=== PATIENT | male | born 1960 | race Caucasian/White ===

== ENCOUNTER 2017-10-21 06:52 | Emergency (ER) | payer OTHER ==
[2017-10-21 06:59] VITALS: BP 163/89
[2017-10-21] MEDS ORDERED: TETANUS/DIPHTHERIA/PERTUSSIS 0.5 ML SYRINGE IM ONE (07:05)
[2017-10-21] MEDS ORDERED: AMOX/CLAV 875 MG/125 MG TABLET PO STA (07:29)
--- NOTE | 2017-10-21 08:14 | ED Physician Documentation ---
History of Present Illness - Stated complaint Stated Complaint: DOG BITE/R ELBOW LAC - Chief complaint Chief Complaint: Laceration - Additonal information Additional information: 57 male bit by another persons per dog 2 days ago on R elbow dog healthy and immunized Review of Systems Skin: reports: Bite / sting Immunocompromised: denies: Immunocompromised PD PAST MEDICAL HISTORY - Past Medical History Cardiovascular: Hypertension : 7 - Past Surgical History Past Surgical History: Yes - Present Medications Home Medications: Ambulatory Orders Medication Instructions Recorded Confirmed Doxazosin [Cardura] 8 mg PO QPM 10/03/12 11/29/13 Hydrocodone/Acetaminophen 1 - 2 tab PO Q4-6H PRN #15 tablet 11/29/13 [Hydrocodon-Acetaminophen 5-325] Amox/Clav 875/125 [Augmentin] 1 each PO Q12H #10 tablet 10/21/17 - Allergies Allergies/Adverse Reactions: Allergies Allergy/AdvReac Type Severity Reaction Status Date / Time No Known Drug Allergies Allergy Verified 10/03/12 10:12 - Social History Does the pt smoke?: No Smoking Status: Former smoker Does the pt drink ETOH?: No Does the pt have substance abuse?: No - Immunizations Immunizations are current?: No Immunizations: TDAP >10years/unknown PD ED PE NORMAL - Vitals Vital signs reviewed: Yes - Cardiac Cardiac: RRR - Respiratory Respiratory: No respiratory distress - Extremities Extremities: Other (several abrasions and punctures to R elbow, no surrounding erythema or swelling or streaking) - Neuro Neuro: No motor deficit, No sensory deficit Results - Vitals Vitals: Vital Signs - 24 hr 10/21/17 06:56 Temperature 35.8 C L Heart Rate 99 Respiratory 16 Rate Blood Pressure 163/89 H O2 Saturation 99 Oxygen O2 Source Room air Departure - Departure Disposition: 01 Home, Self Care Clinical Impression: Dog bite of right elbow Qualifiers: Encounter type: initial encounter Qualified Code(s): S51.051A - Open bite, right elbow, initial encounter; W54.0XXA - Bitten by dog, initial encounter; W54.0XXA - Bitten by dog, initial encounter Condition: Good Instructions: ED Bite Dog Follow-Up: Gerardo Cline MD [Primary Care Provider] - Prescriptions: Amox/Clav 875/125 [Augmentin] 1 each PO Q12H #10 tablet Comments: Please wash the wound carefully and apply antibiotic ointment twice a day Watch carefully for any developing infection (redness swelling drainage) and return to the ER if worse
[2017-10-21] MEDS ORDERED: BACITRACIN OINT TOP ONE (08:41)
== END 2017-10-21 08:40 | disposition home or self-care (01) ==
LOC: ED 06:52
DX: S51.051A Open bite, right elbow, initial encounter (principal); W54.0XXA Bitten by dog, initial encounter; Z23 Encounter for immunization; I10 Essential (primary) hypertension; Z87.891 Personal history of nicotine dependence
CPT/HCPCS: 90471; 90715; 99283; A9270

== ENCOUNTER 2018-01-11 21:45 | Emergency (ER) | payer OTHER ==
[2018-01-11 21:52] VITALS: BP 158/100
--- NOTE | 2018-01-12 00:04 | Ultrasound Report ---
Procedure Date: 01/11/2018 Accession Number: [id number] / [id number] Procedure: US - Duplex Ext Veins Right CPT Code: FULL RESULT: EXAM: RIGHT LOWER EXTREMITY VENOUS ULTRASOUND EXAM DATE: 01/11/2018 11:09 PM. CLINICAL HISTORY: Unilateral right leg swelling. COMPARISON: None. TECHNIQUE: Real-time sonographic vascular imaging was performed by the application support manager through the lower extremity utilizing both color-flow and Doppler spectral analysis. Multiple business center representative static images were saved for review. FINDINGS: Common Femoral Vein (CFV): Normal. CFV-GSV Junction: Normal. Profunda Femoral Vein (PFV): Normal. Femoral Vein (FV) Prox: Normal. Femoral Vein (FV) Mid: Normal. Femoral Vein (FV) Dist: Suboptimally seen. No thrombus identified. Popliteal Vein: Suboptimally seen. No thrombus identified. Posterior Tibial Veins: Not well seen. Peroneal Veins: Not well seen. Contralateral Side CFV: Normal. Other: Fluid anteriorly at the knee, presumably joint effusion. Popliteal fossa cyst measuring 3.0 x 1.1 x 1.9 cm. Complex nonvascular intramuscular collection in the posterior calf which is too large to measure. IMPRESSION: 1. No deep venous thrombosis seen. Calf veins are not well seen. 2. Probable large knee joint effusion. 3. Popliteal fossa cyst measuring 3.0 x 1.1 x 1.9 cm. 4. Probable large hematoma in the posterior calf musculature. RADIA
--- NOTE | 2018-01-12 00:12 | ED Physician Documentation ---
PD HPI LOWER EXT INJURY - Stated complaint Stated Complaint: LEG PX - Chief complaint Chief Complaint: Ext Problem - History obtained from History obtained from: Patient - History of Present Illness PD HPI LOW EXT INJURY LOCATION: Right, Knee, Lower leg Where injury occurred: Home Timing - onset: How many weeks ago (1) Timing - details: Gradual onset, Still present Associated symptoms: Swelling, Discolored Similar symptoms before: Has not had sx before Recently seen: Not recently seen - Additional information Additional information: Patient is a 57 year old male who is presenting to the emergency department for right leg tenderness and swelling. Patient denies any trauma but states that his knee was swollen and then spreading seemed to spread to his leg. Review of Systems Ten Systems: 10 systems reviewed and negative Respiratory: denies: Dyspnea Musculoskeletal: reports: Extremity pain, Extremity swelling PD PAST MEDICAL HISTORY - Past Medical History Past Medical History: Yes Cardiovascular: Hypertension : 7 - Past Surgical History Past Surgical History: Yes - Present Medications Home Medications: Ambulatory Orders Medication Instructions Recorded Confirmed Doxazosin [Cardura] 8 mg PO QPM 10/03/12 01/11/18 - Allergies Allergies/Adverse Reactions: Allergies Allergy/AdvReac Type Severity Reaction Status Date / Time No Known Drug Allergies Allergy Verified 10/03/12 10:12 - Social History Does the pt smoke?: No Smoking Status: Never smoker Does the pt drink ETOH?: No Does the pt have substance abuse?: No - Immunizations Immunizations are current?: Yes Immunizations: TDAP current <10years PD ED PE NORMAL - Vitals Vital signs reviewed: Yes - General General: Alert and oriented X 3 - HEENT HEENT: Atraumatic - Cardiac Cardiac: RRR - Respiratory Respiratory: No respiratory distress - Neuro Neuro: Alert and oriented X 3 Eye Opening: Spontaneous PD ED PE EXPANDED - Extremities Extremities: Right leg (tenderness and swelling of right lower extremity), Pedal edema R, Pedal Pulses Present, Sensory intact, Vascular intact. No: Cold foot, Pale foot Results - Vitals Vitals: Vital Signs - 24 hr 01/11/18 21:49 Temperature 36.4 C L Heart Rate 99 Respiratory 18 Rate Blood Pressure 158/100 H O2 Saturation 98 Oxygen O2 Source Room air - Rads (name of study) vas study Radiology: Final report received (hematoma of right lower extremity, no dvt present) PD MEDICAL DECISION MAKING - ED course Complexity details: reviewed old records, reviewed results, re-evaluated patient , considered differential, d/w patient ED course: Patient was seen and examined at bedside. vasc study was ordered. patient was found to have hematoma in his right lower extremity but no dvt. Patient was made aware of the findings. Patient required no further work up and was stable for discharge with outpatient follow up. - Sepsis Event Vital Signs: Vital Signs - 24 hr 01/11/18 21:49 Temperature 36.4 C L Heart Rate 99 Respiratory 18 Rate Blood Pressure 158/100 H O2 Saturation 98 Oxygen O2 Source Room air Departure - Departure Disposition: 01 Home, Self Care Clinical Impression: Hematoma of leg Condition: Good Instructions: ED Hematoma Follow-Up: Gerardo Cline MD [Primary Care Provider] - Within 3 Days Comments: Your diagnostics today showed a large hematoma (clot) in your leg but not in your blood vessels. It is important to keep your leg elevated and you can apply warm compresses to the area to help with clot dissipate. You can also wear compression stockings during the day to help with swelling. You should follow up with your doctor if your symptoms persist. You may return to the emergency department at any time for new, worsening or uncontrollable symptoms.
== END 2018-01-12 00:15 | disposition home or self-care (01) ==
LOC: ED 21:45
DX: S80.11XA Contusion of right lower leg, initial encounter (principal); X58.XXXA Exposure to other specified factors, initial encounter; I10 Essential (primary) hypertension
CPT/HCPCS: 99282; 99283

== ENCOUNTER 2019-04-08 10:00 | Outpatient (CLI) | payer OTHER | END 2019-04-08 23:59 | disposition home or self-care (01) | LOC: LAB.N 10:00 | PROVIDERS: ATTEND Nurse Practitioner Gerontology | DX: R31.9 Hematuria, unspecified (principal) | CPT/HCPCS: 36415; 84153 ==

== ENCOUNTER 2019-09-28 08:00 | Outpatient (CLI) | payer OTHER ==
[2019-09-28 13:39] LABS: BILIRUBIN,URINE NEGATIVE (NEGATIVE); GLUCOSE, URINE (UA) NEGATIVE (NEGATIVE); KETONES,URINE (UA) NEGATIVE (NEGATIVE); LEUKOCYTE ESTERASE, URINE NEGATIVE (NEGATIVE); NITRITE,URINE NEGATIVE (NEGATIVE); OCCULT BLOOD,URINE NEGATIVE (NEGATIVE); PH,URINE 6.5 PH (5.0-7.5); PROTEIN,URINE NEGATIVE (NEGATIVE); UROBILINOGEN,URINE 0.2 (NORMAL) E.U./dL (NORMAL)
[2019-09-28 13:42] LABS: CLARITY,URINE CLEAR (CLEAR)
== END 2019-09-28 23:59 | disposition home or self-care (01) ==
LOC: LAB.WCP 08:00
PROVIDERS: ATTEND Family Medicine
DX: R31.9 Hematuria, unspecified (principal)
CPT/HCPCS: 36415; 81001; 81003; 84153; 87086

== ENCOUNTER 2019-10-12 17:44 | Outpatient (CLI) | payer OTHER | END 2019-10-12 23:59 | disposition home or self-care (01) | LOC: LAB.R 17:44 | PROVIDERS: ATTEND Family Medicine | DX: Z12.11 Encounter for screening for malignant neoplasm of colon (principal) | CPT/HCPCS: 82274 ==

== ENCOUNTER 2019-11-17 08:55 | Outpatient (CLI) | payer OTHER ==
--- NOTE | 2019-11-17 16:17 | XRAY Report ---
Reason: LEFT ANKLE PAIN Procedure Date: 11/17/2019 Accession Number: [id number] / [id number] Procedure: WCP - Ankle 2 View LT CPT Code: Final Report FULL RESULT: PROCEDURE: Ankle 2 View LT INDICATIONS: LEFT ANKLE PAIN TECHNIQUE: 2 views of the ankle were acquired. COMPARISON: None FINDINGS: Bones: No fractures or dislocations. Ankle mortise is normally aligned. No suspicious bony lesions. Calcaneal spur is present. Soft tissues: No tibiotalar joint effusion. Achilles tendon appears normal. IMPRESSION: No visualized acute fracture or dislocation. However, occult injury cannot be excluded. Recommend short interval imaging follow-up in 7-10 days as clinically indicated for additional evaluation. Reviewed by: Veronica Salter MD on 11/17/2019 4:16 PM PDT Approved by: Veronica Salter MD on 11/17/2019 4:16 PM PDT Station ID: [id number]
== END 2019-11-17 23:59 | disposition home or self-care (01) ==
LOC: DI.WCP 08:55
PROVIDERS: ATTEND Family Medicine
DX: M77.32 Calcaneal spur, left foot (principal)

== ENCOUNTER 2021-01-07 16:42 | Outpatient (CLI) | payer BC ==
[2021-01-07 20:48] LABS: BASOPHILS # (AUTO) 0.1 10^3/uL (0.0-0.1); BASOPHILS % (AUTO) 0.9 %; EOSINOPHILS # (AUTO) 0.3 10^3/uL (0.0-0.7); EOSINOPHILS % (AUTO) 4.3 %; HCT - HEMATOCRIT 42.6 % (42.0-52.0); HGB - HEMOGLOBIN 14.5 g/dL (14.0-18.0); LYMPHOCYTES # (AUTO) 2.1 10^3/uL (1.5-3.5); LYMPHOCYTES % (AUTO) 27.7 %; MEAN CORPUSCULAR HEMOGLOBIN 30.4 pg (27.0-31.0); MEAN CORPUSCULAR VOLUME 89.3 fL (80.0-94.0); MEAN PLATELET VOLUME 9.9 fL (7.4-11.4); MONOCYTES # (AUTO) 0.7 10^3/uL (0.0-1.0); MONOCYTES % (AUTO) 8.9 %; NEUTROPHILS # (AUTO) 4.4 10^3/uL (1.5-6.6); NEUTROPHILS % (AUTO) 57.9 %; PLT - PLATELET COUNT 286 10^3/uL (130-450); RED BLOOD COUNT 4.77 10^6/uL (4.70-6.10); RED CELL DISTRIBUTION WIDTH 12.5 % (12.0-15.0); WHITE BLOOD COUNT 7.6 x10^3/uL (4.8-10.8)
[2021-01-07 21:01] LABS: ALBUMIN 4.8 g/dL (3.2-5.5); ALBUMIN/GLOBULIN RATIO 1.8 (1.0-2.2); ALKALINE PHOSPHATASE 73 IU/L (42-121); ALT ALANINE AMINOTRANSFERASE 17 IU/L (10-60); AST ASPARTATE AMINOTRANSFERASE 17 IU/L (10-42); BILIRUBIN,TOTAL 0.4 mg/dL (0.2-1.0); BUN - BLOOD UREA NITROGEN 20 mg/dL (6-20); CALCIUM 9.1 mg/dL (8.5-10.3); CARBON DIOXIDE - CO2 27 mmol/L (21-32); CHLORIDE 100 mmol/L (101-111); CHOL/HDL RATIO 5.6 (<5.0); CHOLESTEROL 239 mg/dL; CREATININE 0.7 mg/dL (0.6-1.2); GFR - MDRD 115 (>89); GLUCOSE 92 mg/dL (70-100); HDL CHOLESTEROL 43 mg/dL; LDL CHOLESTEROL,CALCULATED 131 mg/dL; POTASSIUM 3.4 mmol/L (3.5-5.0); SODIUM 138 mmol/L (135-145); TOTAL PROTEIN 7.4 g/dL (6.7-8.2); TRIGLYCERIDES 324 mg/dL; VLDL CHOLESTEROL 65 mg/dL
== END 2021-01-07 16:43 | disposition home or self-care (01) ==
LOC: LAB.N 16:42
PROVIDERS: ATTEND Family Medicine
DX: I10 Essential (primary) hypertension (principal); N40.1 Benign prostatic hyperplasia with lower urinary tract symptoms; C61 Malignant neoplasm of prostate; N13.8 Other obstructive and reflux uropathy
CPT/HCPCS: 36415; 80053; 80061; 83721; 84153; 85025

== ENCOUNTER 2021-01-13 08:00 | Outpatient (CLI) | payer BC ==
[2021-01-14 19:01] LABS: FECAL OCCULT BLOOD (FIT) POSITIVE (NEGATIVE)
== END 2021-01-13 23:59 | disposition home or self-care (01) ==
LOC: LAB.R 08:00
PROVIDERS: ATTEND Family Medicine
DX: Z12.11 Encounter for screening for malignant neoplasm of colon (principal)
CPT/HCPCS: 82274

== ENCOUNTER 2021-02-12 10:15 | Outpatient (CLI) | payer BC ==
--- NOTE | 2021-02-12 13:35 | XRAY Report ---
PROCEDURE: Knee 4 View RT INDICATIONS: ARTHRITIS, R KNEE TECHNIQUE: 4 views of the right knee(s) were acquired. COMPARISON: None. FINDINGS: Bones: No fractures or dislocations. No suspicious bony lesions. There is severe recommend the kne e joint degeneration, most pronounced in the medial femorotibial compartment and patellofemoral osmany rtment. Note is made of severe left knee joint degeneration. Soft tissues: Moderate right joint effusion. No suspicious soft tissue calcifications. IMPRESSION: 1. Severe osteoarthritic changes. 2. Moderate knee joint effusion. Reviewed by: Poncho Calvin MD on 02/12/2021 1:34 PM PDT Approved by: Poncho Calvin MD on 02/12/2021 1:34 PM PDT Station ID: [id number]
== END 2021-02-12 23:59 | disposition home or self-care (01) ==
LOC: DI.N 10:15
PROVIDERS: ATTEND Physician Assistant
DX: M17.11 Unilateral primary osteoarthritis, right knee (principal); M25.461 Effusion, right knee

== ENCOUNTER 2021-04-05 08:17 | Day surgery (SDC) | payer BC ==
[2021-04-05] MEDS ORDERED: LACTATED RINGERS 1,000 ML IV ONE (08:57)
--- NOTE | 2021-04-05 09:58 | ANESTHESIA ---
Pre-Anesthesia VS, & Labs - Diagnosis screening - Procedure colonoscopy Vital Signs: Temp Pulse Resp BP Pulse Ox 37.2 C 22 L 102 H 108/91 H 98 04/05/21 08:37 04/05/21 08:37 04/05/21 08:37 04/05/21 08:37 04/05/21 08:37 Height: 5 ft 8 in Weight (kg): 78 kg Body Mass Index: 26.1 BMI Classification: Overweight - NPO >8 hours Home Medications and Allergies Home Medications: Ambulatory Orders amLODIPine [Norvasc] 5 mg PO DAILY 04/05/21 amLODIPine [Norvasc] 5 mg PO DAILY 04/05/21 Allergies/Adverse Reactions: Allergies Allergy/AdvReac Type Severity Reaction Status Date / Time No Known Drug Allergies Allergy Verified 10/03/12 10:12 Anes History & Medical History - Anesthetic History Anesthesia Complications: reports: No previous complications Family history of Anesthesia Complications: Denies Family history of Malignant Hyperthermia: Denies - Medical History Cardiovascular: reports: Hypertension Urinary: Smoking Status: Never smoker Exam General: Alert, Oriented x3, Cooperative Mouth Openin Fingerbreadth Neck Mobility: Normal Mallampati classification: III Thyromental Distance: 4-6 cm Respiratory: Lungs clear Cardiovascular: Regular rate Plan Anesthesia Type: Total IV Consent for Procedure(s) Verified and Reviewed: Yes Code Status: Attempt Resuscitation ASA classification: 2-Mild systemic disease Is this case an emergency?: No
[2021-04-05] MEDS ORDERED: PROPOFOL 500 MG/50 ML 500 MG/50 ML VIAL ONE (10:23)
[2021-04-05] MEDS ORDERED: MIDAZOLAM 2 MG/2 ML VIAL ONE (10:26)
--- NOTE | 2021-04-05 10:58 | HISTORY & PHYSICAL EXAMINATION ---
Chief Complaint - Chief Complaint Chief Complaint: Here for colon cancer screening History of Present Illness - History Obtained From Records Reviewed: yes History obtained from: pt Exam Limitations: none - History of Present Illness HPI Comment/Other: Here for colon cancer screening. History - Past Medical History Cardiovascular: reports: Hypertension : MRSA Hx?: No Meds/Allgy - Home Medications Home Medications: Ambulatory Orders Medication Instructions Recorded Confirmed amLODIPine [Norvasc] 5 mg PO DAILY 04/05/21 04/05/21 - Allergies Allergies/Adverse Reactions: Allergies Allergy/AdvReac Type Severity Reaction Status Date / Time No Known Drug Allergies Allergy Verified 10/03/12 10:12 Review of Systems - Other Findings Other Findings: 10 pt ros as above otherwise unremarkable Exam - Vital Signs Reviewed Vital Signs: Yes Vital Signs: Vital Signs x48h Temp Pulse Resp BP Pulse Ox 04/05/21 08:37 37.2 C 22 L 102 H 108/91 H 98 - Physical Exam General Appearance: positive: No acute distress, Alert Eyes Bilateral: positive: PERRL, EOMI ENT: positive: No signs of dehydration Neck: positive: No JVD Respiratory: positive: No respiratory distress, Breath sounds nml Cardiovascular: positive: Regular rate & rhythm Abdomen: positive: Non-tender, No distention Neurologic/Psychiatric: positive: Oriented x3 Conclusion/Plan - Problem List (1) Colon cancer screening Conclusion/Plan: plan colonoscopy. parq held and consent obtained
[2021-04-05] MEDS ORDERED: LACTATED RINGERS 100 ML IV ONE (11:57)
[2021-04-05 12:20] VITALS: BP 132/74
--- NOTE | 2021-04-05 15:06 | ANESTHESIA POST OP EVALUATION ---
Anesthesia Post Eval - Post Anesthesia Eval Vitals: Last Vital Signs Temp 36.6 C 04/05/21 12:15 Pulse 84 04/05/21 12:15 Resp 16 04/05/21 12:15 BP 132/74 H 04/05/21 12:15 Pulse Ox 98 04/05/21 12:15 CV Function Including HR & BP: Stable Pain Control: Satisfactory Nausea & Vomiting: Negative Mental Status: Baseline Respiratory Status: Airway Patent Hydration Status: Satisfactory Anesthesia Complications: None
== END 2021-04-05 08:18 | disposition home or self-care (01) ==
LOC: SDS 08:17
PROVIDERS: ATTEND Surgery
PROC: 0DBN8ZZ Excision of Sigmoid Colon, Via Natural or Artificial Opening Endoscopic (ICD-10-PCS; principal; 2021-04-05 10:30)
DX: R19.5 Other fecal abnormalities (principal); D12.5 Benign neoplasm of sigmoid colon; Z85.46 Personal history of malignant neoplasm of prostate; Z92.3 Personal history of irradiation; F17.210 Nicotine dependence, cigarettes, uncomplicated
CPT/HCPCS: 45385; J7120

== ENCOUNTER 2022-01-23 10:52 | Outpatient (CLI) | payer BC ==
--- NOTE | 2022-01-23 16:24 | XRAY Report ---
PROCEDURE: Knee 4 View BILAT INDICATIONS: BILATERAL PRIMARY OSTEOARTHRITIS OF KNEE TECHNIQUE: Four views of the right knee. COMPARISON: None. FINDINGS: Moderate tricompartmental osteoarthritis in both knees, slightly more pronounced on the left. There i s tricompartmental joint space narrowing with osteophytosis. Additional subchondral sclerosis and cys tic change noted in the medial femorotibial compartments, right greater than left. No knee joint effu marta identified. No suspicious lytic or blastic lesion. No periarticular erosion. IMPRESSION: Moderate bilateral knee osteoarthritis, slightly more pronounced on the right. Reviewed by: Kian Malone MD on 01/23/2022 4:22 PM PDT Approved by: Kian Malone MD on 01/23/2022 4:22 PM PDT Station ID: [id number]
== END 2022-01-23 10:53 | disposition home or self-care (01) ==
LOC: DI 10:52
PROVIDERS: ATTEND Orthopaedic Surgery
DX: M17.0 Bilateral primary osteoarthritis of knee (principal)

== ENCOUNTER 2022-02-11 12:27 | Outpatient (CLI) | payer BC | END 2022-02-11 12:28 | disposition home or self-care (01) | LOC: LAB.N 12:27 | PROVIDERS: ATTEND Orthopaedic Surgery | DX: Z01.812 Encounter for preprocedural laboratory examination (principal); M17.0 Bilateral primary osteoarthritis of knee; Z20.822 Contact with and (suspected) exposure to COVID-19 ==

== ENCOUNTER 2022-02-12 06:22 | Day surgery (SDC) | payer BC ==
[2022-02-12] MEDS ORDERED: LACTATED RINGERS 1,000 ML IV ONE ×2 (06:25→10:54)
[2022-02-12] MEDS ORDERED: CELECOXIB 100 MG CAPSULE PO ONE (06:29)
[2022-02-12] MEDS ORDERED: DEXAMETHASONE 10 MG/ML VIAL ONE (06:29)
[2022-02-12] MEDS ORDERED: ACETAMINOPHEN 500 MG TABLET PO ONE (06:29)
[2022-02-12] MEDS ORDERED: CEFAZOLIN 2G/50ML 0.9% NS 2 GM/50 ML BAG IV ONE (06:30)
--- NOTE | 2022-02-12 07:17 | ANESTHESIA ---
Pre-Anesthesia VS, & Labs - Diagnosis R knee OA - Procedure R TKA Vital Signs: Temp Pulse Resp BP Pulse Ox O2 Flow Rate 36.9 C 93 16 150/84 H 98 0 02/12/22 06:37 02/12/22 06:37 02/12/22 06:37 02/12/22 06:37 02/12/22 06:37 02/12/22 06:37 Height: 5 ft 8 in Weight (kg): 81.4 kg Body Mass Index: 27.3 BMI Classification: Overweight - NPO >8 hours - Lab Results Current Lab Results: Laboratory Tests 02/12/22 06:49: POC Whole Bld Glucose 97 Home Medications and Allergies Home Medications: Ambulatory Orders Tadalafil [Cialis] 20 mg PO PRN PRN 02/04/22 Tamsulosin [Flomax] 0.4 mg PO QPM 02/04/22 amLODIPine [Norvasc] 10 mg PO DAILY 04/05/21 Tadalafil [Cialis] 20 mg PO PRN PRN 02/04/22 Tamsulosin [Flomax] 0.4 mg PO QPM 02/04/22 Allergies/Adverse Reactions: Allergies Allergy/AdvReac Type Severity Reaction Status Date / Time No Known Drug Allergies Allergy Verified 10/03/12 10:12 Anes History & Medical History - Anesthetic History Anesthesia Complications: reports: No previous complications Family history of Anesthesia Complications: Denies Family history of Malignant Hyperthermia: Denies - Medical History Cardiovascular: reports: Hypertension Pulmonary: reports: None Gastrointestinal: reports: None Musculoskeletal: reports: Osteoarthritis Endocrine/Autoimmune: reports: None Skin: reports: None Smoking Status: Never smoker - Surgical History General: reports: Colonoscopy Exam General: Alert, Oriented x3, Cooperative Dental: WNL Neck Mobility: Normal Mallampati classification: II Thyromental Distance: 4-6 cm Respiratory: Lungs clear, Normal breath sounds, No respiratory distress Cardiovascular: Regular rate Neurological: Normal speech Mental/Cognitive Status: Alert/Oriented X3, Normal for patient Cognitive Status: Within normal limits Plan Anesthesia Type: Spinal Consent for Procedure(s) Verified and Reviewed: Yes Code Status: Attempt Resuscitation ASA classification: 2-Mild systemic disease Is this case an emergency?: No
[2022-02-12] MEDS ORDERED: HYDROmorphone 0.5 MG/0.5 ML SYRINGE IVP PRN (07:18)
[2022-02-12] MEDS ORDERED: fentaNYL 100 MCG/2 ML VIAL IVP PRN ×2 (07:18→10:48)
[2022-02-12] MEDS ORDERED: ePHEDrine 50 MG/ML VIAL IVP PRN (07:18)
[2022-02-12] MEDS ORDERED: METOCLOPRAMIDE 10 MG/2 ML VIAL IVP PRN (07:18)
[2022-02-12] MEDS ORDERED: ATROPINE ABBOJECT 1 MG/10 ML SYRINGE IVP PRN (07:18)
[2022-02-12] MEDS ORDERED: ONDANSETRON 4 MG/2 ML VIAL IVP PRN ×2 (07:18→10:48)
[2022-02-12] MEDS ORDERED: MORPHINE 2 MG/ML CARPUJECT IVP PRN (07:18)
[2022-02-12] MEDS ORDERED: NALOXONE 0.4 MG/ML VIAL IVP PRN (07:18)
[2022-02-12] MEDS ORDERED: BUPIVACAINE 0.25% PF 10 ML VIAL ONE (07:25)
[2022-02-12] MEDS ORDERED: VANCOMYCIN 1 GM VIAL ONE (07:25)
[2022-02-12] MEDS ORDERED: PROPOFOL 200 MG/20 ML VIAL IVP ONE (07:27)
[2022-02-12] MEDS ORDERED: KETOROLAC 30 MG/ML VIAL ONE (07:27)
[2022-02-12] MEDS ORDERED: TRANEXAMIC ACID 1,000 MG/10 ML VIAL ONE (07:28)
[2022-02-12] MEDS ORDERED: MIDAZOLAM 2 MG/2 ML VIAL ONE (07:28)
[2022-02-12] MEDS ORDERED: BUPIVACAINE 0.5% PF 10 ML VIAL ONE (07:30)
[2022-02-12] MEDS ORDERED: LACTATED RINGERS 1,000 ML IV SCH (08:00)
[2022-02-12] MEDS ORDERED: BUPIVACAINE 0.25% PF 10 ML VIAL SUBQ ONE (08:42)
[2022-02-12] MEDS ORDERED: VANCOMYCIN 1 GM VIAL MC ONE (08:43)
[2022-02-12] MEDS ORDERED: HYDROGEN PEROXIDE 3% 473 ML BOTTLE TOP ONE (08:45)
[2022-02-12] MEDS ORDERED: KETAMINE 500 MG/10 ML VIAL ONE (09:29)
[2022-02-12] MEDS ORDERED: PROPOFOL 500 MG/50 ML 500 MG/50 ML VIAL ONE ×2 (09:38→13:10)
[2022-02-12] MEDS ORDERED: fentaNYL 100 MCG/2 ML VIAL ONE (09:40)
--- NOTE | 2022-02-12 09:56 | XRAY Report ---
PROCEDURE: Knee 2 View RT INDICATIONS: BROKEN SAW BLADE DURING SURGERY TECHNIQUE: Single AP view of the knee. COMPARISON: Knee radiographs 01/23/2022. FINDINGS: Intraoperative radiograph demonstrates postsurgical changes at the femoral and tibial articular surfa carmen. Overlying postoperative changes are seen in the soft tissues. No metallic foreign body is seen. IMPRESSION: No metallic foreign body. Reviewed by: Tim Portillo MD on 02/12/2022 9:55 AM PDT Approved by: Tim Portillo MD on 02/12/2022 9:55 AM PDT Station ID: [id number]
[2022-02-12] MEDS ORDERED: ePHEDrine 50 MG/ML VIAL IVP ONE ×2 (10:06→12:55)
[2022-02-12] MEDS ORDERED: ROPIVACAINE 0.5% PF 30 ML VIAL ONE (10:22)
--- NOTE | 2022-02-12 10:25 | OPERATIVE REPORT ---
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 He has had chronic pain refractory to nonoperative treatment that interferes with most weightbearing activities. His exam shows a relatively fixed varus deformity right knee, joint line tenderness, good stability and strength. His routine radiographs show [id number] contact medial compartment, varus angulation, osteophytes about the tibiofemoral and patellofemoral joint. He has had preoperative medical evaluation, attended joint camp, agreement to the procedure of a right total knee replacement and signed informed consent in our office. Findings: He had a relatively fixed varus deformity of the right knee. There was eburnated bone surfaces and osteophytes about the tibia and femur especially on the medial side. There was full-thickness partial loss on the lateral side as well and advanced changes to the patellofemoral joint with loss of articular cartilage and osteophytes. He also had a flexion contracture of at least 10 degrees. His contractures and deformity markedly improved with soft tissue releases and the bony cuts. Complications: None - Other Other Information/Narrative: The patient was brought to the operating room and was placed in a supine position. The patientwas given a adductor canal block by anesthesia Post procedure. A pneumatic tourniquet was applied to the proximal right thigh over cast padding. This was a conical shaped Camilo thigh tourniquet that was sterile. A Foot bump was placed on the operating room table to facilitate knee flexion of the Right knee during surgery. A timeout procedure was performed by the entire operating room team and all were in agreement. A midline longitudinal incision was made with the knee in flexion. A medial parapatellar arthrotomy was made. The anterior horn of medial and lateral menisci were released and part of patellar fat pad was excised. The knee was flexed and the patella was dislocated laterally. A drill hole was made in the intramedullary notch with a 9.5 mm drill. Osteophytes about the proximal tibia and femur had been removed with a rongeur. The distal femoral cutting guide was aligned parallel to the posterior condyles. The intramedullary sav and guide was advanced and the distal femoral guide was stabilized with half pins. The distal 5 degrees valgus cut was made through the distal femoral guide.There was an additional 2 mm resection of the distal femur was performed to compensate for the flexion contracture of his right knee. Next the extra medullary tibial guide was assembled and applied and aligned to the mechanical axis in both sagittal and coronal planes. Tibial referencing was done to allow 1 mm of bone from the most affected side. The tibial guide was stabilized with half pins. Retractors were placed medially and laterally to protect the collateral ligaments and a retractor was placed directly against the posterior bone to sublux the tibia anteriorly. A IntY precision 8 saw was used to make the tibial proximal cut. The tibial block was removed as a single piece and the menisci were removed as well. The extension gap was assessed with a extension block spacer using a 13 mm spacer and this was found to fit well as well as the 13 mm spacer block with the knee in 90 degrees of flexion. Next the femoral positioning guide was applied and aligned to the epicondylar axis and Chester line. This was secured in place with approximately 3 degrees of external rotation. The size of the femur at the anterior lateral trochlea was a #5. Drill holes were made in the 5 and 1 #5 cutting block was inserted and secured. The 5 cuts were made to the captured block using oscillating saw. At the very last cut on the femoral side of the cutting block, the tip of the [employer] precision aid saw blade fractured and seemed to be captured within the block which was removed. Metallic fragment investigation was performed and no metallic objects found within the knee joint or soft tissues. An intraoperative AP knee x-ray was obtained with sterile technique and the intraoperative x-ray did not show any foreign body. This confirmed our clinical impression as well. The flexion gap was assessed with the 13 mm spacer and was found to fit well. The patella was then prepared. A 26 mm biconvex patellar reamer was used. The tibial trial #5 was then applied to the tibia and aligned to the mechanical axis. The drill and punch fin was utilized. Reaming of the notch was performed with drill reamers anteriorly and posteriorly. Trial reduction was performed with the femoral and tibial components in place. Pulsatile lavage was performed. A tourniquet was applied during the cementing process. The components were inserted sequentially: Tibia, femur and lastly patellar component. Drill holes were made in medial lateral femoral condyles to the trial. Excess cement was removed and the knee was placed in extension during the hardening. Hydrogen peroxide was used the pulsatile lavage of the bony surface prior to cementing components. Dilute Betadine irrigation was performed After implantation of the components. The knee had full range of motion, good patellar tracking. There was good stability of the knee in full extension mid flexion and 90 degrees of flexion. There was good alignment of the right knee. The tourniquet had been deflated and had been in place for 19 minutes. Hemostasis was achieved with electrocautery. Vancomycin powder 2 g were inserted in the arthrotomy prior to deep closure. The deep closure was performed with #2 Ethibond proximal and distal to the patella with the knee in 40 degrees of flexion. #1 stratofix suture was then used to close the arthrotomy incision. 2-0 Stratofix was used to close the subcutaneous tissue. 3-0 Monocryl was used to do a subcuticular skin closure. Dermabond was applied to the skin incision. After the Dermabond had hardened, a silver impregnated dressing was applied. She tolerated the procedure well and received 2 g of Ancef intravenously and 2 g of tranxamic acid. A surgical consultant was utilized during the procedure and was found to be necessary component to help with exposure, protection of vital structures and closure.
[2022-02-12] MEDS ORDERED: SODIUM CHLORIDE FLUSH 0.9% 10 ML SYRINGE IVP PRN (10:48)
[2022-02-12] MEDS ORDERED: DOCUSATE SODIUM 100 MG CAPSULE PO PRN (10:48)
[2022-02-12] MEDS ORDERED: HYDROmorphone 0.5 MG/0.5 ML SYRINGE ONE (11:28)
[2022-02-12] MEDS ORDERED: SODIUM CHLORIDE 0.9% 1,000 ML IV ONE ×2 (11:30→13:00)
--- NOTE | 2022-02-12 11:50 | ANESTHESIA POST OP EVALUATION ---
Anesthesia Post Eval - Post Anesthesia Eval Vitals: Last Vital Signs Temp 37.2 C 02/12/22 11:35 Pulse 82 02/12/22 11:35 Resp 16 02/12/22 11:35 BP 118/98 H 02/12/22 11:35 Pulse Ox 99 02/12/22 11:35 O2 Flow Rate 0 02/12/22 06:37 CV Function Including HR & BP: Stable Pain Control: Satisfactory Nausea & Vomiting: Negative Mental Status: Baseline Respiratory Status: Airway Patent Hydration Status: Satisfactory Anesthesia Complications: None
[2022-02-12] MEDS ORDERED: ONDANSETRON 4 MG/2 ML VIAL ONE (11:52)
[2022-02-12] MEDS: ACETAMINOPHEN 500 MG TABLET PO SCH ×2 (12:03→17:52)
--- NOTE | 2022-02-12 12:21 | XRAY Report ---
PROCEDURE: Knee 2 View RT INDICATIONS: POST OPERATIVE IMAGING TECHNIQUE: 2 views of the right knee were acquired. COMPARISON: Right knee radiographs 02/12/2022 and 01/23/2022. FINDINGS: Bones: Postsurgical changes are seen from right total knee arthroplasty. Hardware components are in e xpected positions. Soft tissues: Immediate postoperative changes are noted in the subcutaneous tissues surrounding the knee. No loose radiopaque foreign body. IMPRESSION: Status post right total knee arthroplasty with expected postoperative appearance. Reviewed by: Tim Portillo MD on 02/12/2022 12:20 PM PDT Approved by: Tim Portillo MD on 02/12/2022 12:20 PM PDT Station ID: [id number]
[2022-02-12] MEDS ORDERED: PHENYLEPHRINE 10 MG/ML VIAL ONE (13:06)
[2022-02-12] MEDS: oxyCODONE 5 MG TABLET PO PRN ×2 (13:24→20:14)
[2022-02-12] MEDS: NS W/20 MEQ KCL 1,000 ML IV SCH (13:43)
[2022-02-12] MEDS: SODIUM CHLORIDE FLUSH 0.9% 10 ML SYRINGE IVP SCH (16:27)
[2022-02-12] MEDS: traMADol 50 MG TABLET PO PRN (17:52)
[2022-02-12] MEDS: CELECOXIB 100 MG CAPSULE PO SCH (20:14)
[2022-02-12] MEDS: ASPIRIN EC 81 MG TABLET PO SCH (20:14)
[2022-02-12] MEDS: ethyl alcohoL 62% SWAB AMPULE NAS SCH (20:15)
[2022-02-13] MEDS: ACETAMINOPHEN 500 MG TABLET PO SCH ×3 (00:50→13:00)
[2022-02-13] MEDS: SODIUM CHLORIDE FLUSH 0.9% 10 ML SYRINGE IVP SCH ×2 (02:34→09:44)
[2022-02-13] MEDS: traMADol 50 MG TABLET PO PRN ×2 (03:19→12:59)
[2022-02-13] MEDS: NS W/20 MEQ KCL 1,000 ML IV SCH (03:19)
--- NOTE | 2022-02-13 08:16 | PROVIDER PROGRESS NOTE ---
Subjective - General Procedure Date: 02/12/22 Post Op Days: 1 Procedure Performed: Right TKA - Review of Systems Wound/Incisions: negative: No drainage General: negative: Fever, Chills Pulmonary: negative: Shortness of breath Cardiovascular: negative: Chest pain Gastrointestinal: negative: Nausea, Vomiting Musculoskeletal: positive: Joint pain, Joint swelling - Other Other Information/Narrative: Patient is a 61-year-old male who is postop day 1 after right TKA by Dr Michael Joy at [facility] on 02/12/2022.Patient medical history includes hypertension on 10 mg of amlodipine, history of prostate cancer on 0.4 mg tamsulosin And hyperlipidemia. Patient denies any significant signs or symptoms of Infection. Patient endorses joint pain And swelling And some operative leg weakness. Objective - Patient Data Reviewed Vital Signs: Yes Vital Signs: Vital Signs x48h Temp Pulse Resp BP Pulse Ox 02/13/22 05:15 36.6 C 50 L 14 140/77 H 93 02/13/22 00:16 36.7 C 99 14 137/72 H 97 Weight: Weight 02/11/22 02/12/22 02/13/22 23:59 23:59 23:59 Weight (kg) 81.4 kg Intake & Output: Intake and Output Totals x24h 02/11/22 02/12/22 02/13/22 23:59 23:59 23:59 Intake Total 2213.75 982.5 Output Total 1010 2000 Balance 1203.75 -1017.5 - Imaging Results Radiology Imaging: positive: EMP read indepedently (I have independently visualized postop x-rays of the right knee taken on 02/12/2022 that show expected changes after total knee arthroplasty with good anatomical alignment and no apparent hardware loosening.) - Current Medications Current Medications: Current Medications Generic Name Dose Route Start Last Admin Trade Name Freq PRN Reason Stop Dose Admin Acetaminophen 1,000 mg 02/12/22 12:00 02/13/22 07:01 Acetaminophen 500 Mg Tablet PO 1,000 mg Q6HR AGNES Administration Alcohol 1 amp 02/12/22 21:00 02/12/22 20:15 Ethyl Alcohol 62% Swab Ampule LESLYE 1 amp BID AGNES Administration Aspirin 81 mg 02/12/22 21:00 02/12/22 20:14 Aspirin Ec 81 Mg Tablet PO 81 mg BID AGNES Administration Celecoxib 200 mg 02/12/22 21:00 02/12/22 20:14 Celecoxib 100 Mg Capsule PO 200 mg BID AGNES Administration Potassium Chloride/Sodium Chloride 1,000 mls @ 75 mls/hr 02/12/22 11:00 02/13/22 03:19 Normal Saline 0.9% W/20 Meq Kcl IV 75 mls/hr .[id number] AGNES Administration Oxycodone HCl 5 mg 02/12/22 10:48 02/12/22 20:14 Oxycodone 5 Mg Tablet PO 5 mg Q6HR PRN Administration PAIN Sodium Chloride 10 ml 02/12/22 17:00 02/13/22 02:34 Sodium Chloride Flush 0.9% 10 Ml Syringe IVP Not Given 0100,0900,1700 AGNES Tramadol HCl 50 mg 02/12/22 10:48 02/13/22 03:19 Tramadol 50 Mg Tablet PO 50 mg Q6HR PRN Administration PAIN - Physical Exam Wound/Incisions: positive: Dressing dry and intact General Appearance: positive: No acute distress Respiratory: positive: No respiratory distress Skin: positive: Color nml, No rash, Warm, Dry Extremities: positive: Joint swelling Neurologic/Psychiatric: positive: Oriented x3 (Dressing is dry and intact. Skin is normal color and warmth no erythema no streaking. Patient has right knee pain and swelling. Patient is neurovascularly intact and he has intact motor and sensation in the right lower limb. Patient can activate his quads although there is some weakness and strai) ABX Reporting Has patient been on IV antibiotics over the past 48 hours?: Yes Impression/Plan - Problem List Problem List: Patient is a 61-year-old male whose history includes hypertension on 10 mg of amlodipine, history of prostate cancer on Flomax 0.5 mg hyperlipidemia who is postop day 1 total knee arthroplasty of the right knee by Dr Michael Joy at [facility] on 02/12/2022. Patient is weightbearing as tolerated in a front wheel walker. No signs or symptoms of infection, patient has some weakness, joint pain and swelling after surgery but is neurovascularly, Including his motor function and can activate his quads. His pain, swelling and weakness should improve every day. Patient is to receive physical and Occupational Therapy today before discharge home. Patient is cleared to discharge home from an orthopedic surgery standpoint. Patient has his discharge instructions printed in the room, See for further details. Patient's written discharge instructions along with his total joint camp materials Detail his medication schedule which briefly includes: Scheduled acetaminophen, tramadol and/or ibuprofen daily with 5 mg of oxycodone for breakthrough pain. Patient is to take 81 mg of aspirin twice a day for 6 weeks for blood clot prevention. Patient is to follow-up this Thursday in the orthopedic care clinic in [place].
[2022-02-13] MEDS: ASPIRIN EC 81 MG TABLET PO SCH (09:44)
[2022-02-13] MEDS: CELECOXIB 100 MG CAPSULE PO SCH (09:44)
[2022-02-13] MEDS: ethyl alcohoL 62% SWAB AMPULE NAS SCH (09:44)
[2022-02-13] MEDS: oxyCODONE 5 MG TABLET PO PRN (10:34)
[2022-02-13 13:36] VITALS: BP 146/84
== END 2022-02-13 14:25 | disposition home or self-care (01) ==
LOC: SDS 06:22 → MS2 11:31 → SDS 02-13 14:25
PROVIDERS: ATTEND Orthopaedic Surgery
DX: M17.0 Bilateral primary osteoarthritis of knee (principal); M24.561 Contracture, right knee; I10 Essential (primary) hypertension; E78.5 Hyperlipidemia, unspecified; Z79.899 Other long term (current) drug therapy; Z85.46 Personal history of malignant neoplasm of prostate
CPT/HCPCS: 27447; 51701; 73560; 97161; 97165; 97530; A9270; C1713; J0690; J1170; J3370; J7120

== ENCOUNTER 2022-03-27 16:05 | Outpatient (CLI) | payer BC ==
--- NOTE | 2022-03-27 15:33 | XRAY Report ---
PROCEDURE: Knee 4 View RT INDICATIONS: RIGHT TOTAL KNEE TECHNIQUE: 4 views of the right knee(s) were acquired. COMPARISON: X-ray knee 02/12/2022 FINDINGS: Bones: No fractures or dislocations. No suspicious bony lesions. Right knee arthroplasty is presen t. Hardware is intact without evidence of hardware fracture or periprosthetic lucency to suggest loos ening. Medial and lateral arthritic changes are present within the left knee, unchanged. Soft tissues: No joint effusion. No suspicious soft tissue calcifications. IMPRESSION: Stable appearance of right knee arthroplasty. Stable left knee arthritic change. Reviewed by: Veronica Salter MD on 03/27/2022 3:31 PM PDT Approved by: Veronica Salter MD on 03/27/2022 3:31 PM PDT Station ID: [id number]
== END 2022-03-27 16:11 | disposition home or self-care (01) ==
LOC: DI.WOS 16:05
PROVIDERS: ATTEND Orthopaedic Surgery
DX: Z09 Encounter for follow-up examination after completed treatment for conditions other than malignant neoplasm (principal); Z96.651 Presence of right artificial knee joint

== ENCOUNTER 2022-08-20 08:23 | Outpatient (CLI) | payer BC ==
[2022-08-20 11:55] LABS: BASOPHILS # (AUTO) 0.1 10^3/uL (0.0-0.1); BASOPHILS % (AUTO) 0.8 %; EOSINOPHILS # (AUTO) 0.5 10^3/uL (0.0-0.7); EOSINOPHILS % (AUTO) 8.3 %; HCT - HEMATOCRIT 42.6 % (42.0-52.0); LYMPHOCYTES # (AUTO) 1.6 10^3/uL (1.5-3.5); LYMPHOCYTES % (AUTO) 25.8 %; MEAN CORPUSCULAR HEMOGLOBIN 28.6 pg (27.0-31.0); MEAN CORPUSCULAR HGB CONC 32.9 g/dL (32.0-36.0); MEAN CORPUSCULAR VOLUME 87.1 fL (80.0-94.0); MEAN PLATELET VOLUME 9.9 fL (7.4-11.4); MONOCYTES # (AUTO) 0.6 10^3/uL (0.0-1.0); MONOCYTES % (AUTO) 10.3 %; NEUTROPHILS # (AUTO) 3.4 10^3/uL (1.5-6.6); NEUTROPHILS % (AUTO) 54.6 %; PLT - PLATELET COUNT 306 10^3/uL (130-450); RED BLOOD COUNT 4.89 10^6/uL (4.70-6.10); RED CELL DISTRIBUTION WIDTH 13.6 % (12.0-15.0); WHITE BLOOD COUNT 6.1 x10^3/uL (4.8-10.8)
[2022-08-20 12:25] LABS: THYROID STIMULATING HORMONE 3.91 uIU/mL (0.34-5.60)
[2022-08-20 12:30] LABS: ALBUMIN 4.3 g/dL (3.2-5.5); ALBUMIN/GLOBULIN RATIO 1.4 (1.0-2.2); ALKALINE PHOSPHATASE 71 IU/L (42-121); ALT ALANINE AMINOTRANSFERASE 18 IU/L (10-60); AST ASPARTATE AMINOTRANSFERASE 17 IU/L (10-42); BILIRUBIN,TOTAL 0.6 mg/dL (0.2-1.0); BUN - BLOOD UREA NITROGEN 19 mg/dL (6-20); CALCIUM 8.7 mg/dL (8.5-10.3); CARBON DIOXIDE - CO2 29 mmol/L (21-32); CHLORIDE 106 mmol/L (101-111); CHOL/HDL RATIO 4.4 (<5.0); CHOLESTEROL 236 mg/dL; CREATININE 0.6 mg/dL (0.6-1.2); GFR - MDRD 137 (>89); GLUCOSE 118 mg/dL (70-100); HDL CHOLESTEROL 54 mg/dL; LDL CHOLESTEROL,CALCULATED 167 mg/dL; LDL/HDL RATIO 3.1 (<3.6); POTASSIUM 3.4 mmol/L (3.5-5.0); SODIUM 140 mmol/L (135-145); TOTAL PROTEIN 7.3 g/dL (6.7-8.2); TRIGLYCERIDES 77 mg/dL; VLDL CHOLESTEROL 15 mg/dL
== END 2022-08-20 08:24 | disposition home or self-care (01) ==
LOC: LAB.N 08:23
PROVIDERS: ATTEND Internal Medicine
DX: I10 Essential (primary) hypertension (principal); E78.5 Hyperlipidemia, unspecified
CPT/HCPCS: 36415; 80053; 80061; 83721; 84443; 85025

== ENCOUNTER 2023-02-03 08:00 | Outpatient (CLI) | payer BC ==
--- NOTE | 2023-02-04 09:26 | XRAY Report ---
PROCEDURE: Knee 4 View RT INDICATIONS: RIGHT TOTAL KNEE TECHNIQUE: 4 views of the right knee(s) were acquired. COMPARISON: X-ray right knee, 03/27/2022, 02/12/2022. FINDINGS: Bones: No fractures or dislocations. No suspicious bony lesions. Right knee total arthroplasty. P rosthesis demonstrates anatomic alignment. Note is made of [id number] left knee joint degeneration. Soft tissues: Moderate knee joint effusion. No suspicious soft tissue calcifications or masses. IMPRESSION: 1. Expected postsurgical changes related to total knee arthroplasty. 2. Moderate knee joint effusion. Reviewed by: Poncho Calvin MD on 02/04/2023 9:25 AM PDT Approved by: Ponhco Calvin MD on 02/04/2023 9:25 AM PDT Station ID: [id number]
== END 2023-02-03 23:59 | disposition home or self-care (01) ==
LOC: DI.WOS 08:00
PROVIDERS: ATTEND Orthopaedic Surgery
DX: Z96.651 Presence of right artificial knee joint (principal); M25.461 Effusion, right knee

== ENCOUNTER 2023-12-17 12:24 | Outpatient (CLI) | payer OTHER, BC ==
--- NOTE | 2023-12-17 21:31 | XRAY Report ---
PROCEDURE: Knee 3V LT INDICATIONS: L KNEE PAIN TECHNIQUE: 3 views of the knee was obtained. COMPARISON: None FINDINGS: Bones: No fractures or dislocations. No suspicious bony lesions. Severe medial and moderate lateral compartmental joint space narrowing. The lateral patellofemoral joint space and narrowing noted as w ell Soft tissues: Small knee joint effusion. No suspicious soft tissue calcifications or masses. IMPRESSION: Tricompartmental osteoarthritis Reviewed by: Tobias Astudillo MD on 12/17/2023 8:30 PM AKDT Approved by: Tobias Astudillo MD on 12/17/2023 8:30 PM AKDT Station ID: [id number]
== END 2023-12-17 12:25 | disposition home or self-care (01) ==
LOC: DI 12:24
PROVIDERS: ATTEND Emergency Medicine
DX: M17.12 Unilateral primary osteoarthritis, left knee (principal)

== ENCOUNTER 2023-12-30 07:48 | Outpatient (CLI) | payer BC ==
[2023-12-30 12:16] LABS: BASOPHILS # (AUTO) 0.1 10^3/uL (0.0-0.1); BASOPHILS % (AUTO) 0.8 %; EOSINOPHILS # (AUTO) 0.3 10^3/uL (0.0-0.7); EOSINOPHILS % (AUTO) 3.5 %; HCT - HEMATOCRIT 42.4 % (42.0-52.0); HGB - HEMOGLOBIN 14.3 g/dL (14.0-18.0); LYMPHOCYTES # (AUTO) 1.6 10^3/uL (1.5-3.5); MEAN CORPUSCULAR HEMOGLOBIN 29.3 pg (27.0-31.0); MEAN CORPUSCULAR HGB CONC 33.7 g/dL (32.0-36.0); MEAN CORPUSCULAR VOLUME 86.9 fL (80.0-94.0); MEAN PLATELET VOLUME 9.7 fL (7.4-11.4); MONOCYTES # (AUTO) 0.6 10^3/uL (0.0-1.0); MONOCYTES % (AUTO) 8.6 %; NEUTROPHILS # (AUTO) 4.8 10^3/uL (1.5-6.6); NEUTROPHILS % (AUTO) 64.8 %; PLT - PLATELET COUNT 274 10^3/uL (130-450); RED BLOOD COUNT 4.88 10^6/uL (4.70-6.10); RED CELL DISTRIBUTION WIDTH 12.7 % (12.0-15.0); WHITE BLOOD COUNT 7.4 x10^3/uL (4.8-10.8)
[2023-12-30 12:56] LABS: ALBUMIN 4.8 g/dL (3.2-5.5); ALBUMIN/GLOBULIN RATIO 1.9 (1.0-2.2); ALKALINE PHOSPHATASE 81 IU/L (42-121); ALT ALANINE AMINOTRANSFERASE 18 IU/L (10-60); AST ASPARTATE AMINOTRANSFERASE 13 IU/L (10-42); BILIRUBIN,TOTAL 0.5 mg/dL (0.2-1.0); BUN - BLOOD UREA NITROGEN 18 mg/dL (6-20); CALCIUM 9.3 mg/dL (8.5-10.3); CARBON DIOXIDE - CO2 29 mmol/L (21-32); CHLORIDE 103 mmol/L (101-111); CHOLESTEROL 155 mg/dL; CREATININE 0.7 mg/dL (0.6-1.3); GFR - MDRD 114 (>89); GLUCOSE 113 mg/dL (74-104); HDL CHOLESTEROL 51 mg/dL; LDL CHOLESTEROL,CALCULATED 76 mg/dL; LDL/HDL RATIO 1.5 (<3.6); POTASSIUM 3.8 mmol/L (3.5-4.5); SODIUM 139 mmol/L (135-145); TOTAL PROTEIN 7.3 g/dL (6.4-8.9); TRIGLYCERIDES 140 mg/dL; VLDL CHOLESTEROL 28 mg/dL
[2023-12-30 13:00] LABS: ESTIMATED AVERAGE GLUCOSE 111 mg/dL (70-100); HEMOGLOBIN A1c% 5.5 % (4.27-6.07)
== END 2023-12-30 07:49 | disposition home or self-care (01) ==
LOC: LAB.N 07:48
PROVIDERS: ATTEND Internal Medicine
DX: C61 Malignant neoplasm of prostate (principal); E78.5 Hyperlipidemia, unspecified; R73.01 Impaired fasting glucose; I10 Essential (primary) hypertension
CPT/HCPCS: 36415; 80053; 80061; 83036; 83721; 84153; 85025

== ENCOUNTER 2023-12-30 08:49 | Outpatient (CLI) | payer BC ==
--- NOTE | 2023-12-30 15:10 | XRAY Report ---
PROCEDURE: Wrist 3+V LT INDICATIONS: OTHER SPECIFIED SPRAIN OF LEFT WRIST TECHNIQUE: 3 views of the wrist were acquired. COMPARISON: None. FINDINGS: Bones: There is a remote appearing, unfused ulnar sided fracture. No acute fractures or dislocations . No suspicious bony lesions. Focal degenerative change is seen involving the first carpometacarpal joint, with milder degenerative changes seen elsewhere. Soft tissues: No suspicious soft tissue calcifications or masses. IMPRESSION: No acute wrist plain film abnormality can be seen. Please correlate with focal tenderness. If there is point tenderness (or other clinical concern for a fracture not seen on these plain films) then please consider a dedicated CT study or a short term fo llow up plain film series for further evaluation. There is a remote appearing, unfused ulnar sided fracture. Age-appropriate degenerative changes are seen. Reviewed by: Donta Hsieh MD on 12/30/2023 2:09 PM [place] Approved by: Donta Hsieh MD on 12/30/2023 2:09 PM [place] Station ID: [id number]
== END 2023-12-30 23:59 | disposition home or self-care (01) ==
LOC: DI.N 08:49
PROVIDERS: ATTEND Physician Assistant
DX: M19.032 Primary osteoarthritis, left wrist (principal); S52.202K Unspecified fracture of shaft of left ulna, subsequent encounter for closed fracture with nonunion

== ENCOUNTER 2024-01-14 14:04 | Outpatient (CLI) | payer BC ==
--- NOTE | 2024-01-14 17:42 | XRAY Report ---
PROCEDURE: Wrist 3+V RT INDICATIONS: PAIN IN RIGHT WRIST TECHNIQUE: 3 views of the wrist were acquired. COMPARISON: None. FINDINGS: Bones: No fractures or dislocations. No suspicious bony lesions. Soft tissues: No suspicious soft tissue calcifications or masses. IMPRESSION: No visualized acute fracture or dislocation. However, occult injury cannot be excluded. Recommend chele rt interval imaging follow-up in 7-10 days as clinically indicated for additional evaluation. Reviewed by: Veronica Salter MD on 01/14/2024 5:41 PM PDT Approved by: Veronica Salter MD on 01/14/2024 5:41 PM PDT Station ID: [id number]
== END 2024-01-14 14:05 | disposition home or self-care (01) ==
LOC: DI.N 14:04
PROVIDERS: ATTEND Internal Medicine
DX: M25.531 Pain in right wrist (principal)